=== PATIENT | female | born 1995 | race Caucasian/White ===

== ENCOUNTER 2017-05-13 17:06 | Outpatient (CLI) | payer OTHER ==
[~2017-05-13] VITALS: Ht 170.2 cm; Wt 69.6 kg
[~2017-05-13 17:06] MED LIST: PRENAT PO
[2017-05-13 17:22] VITALS: BP 136/80; PULSE 96; RESP 18; Ht 170.2 cm; Wt 69.6 kg
--- NOTE | 2017-05-13 17:56 | RADRPT ---
PROCEDURE: US OB. CLINICAL INDICATION: labor at 33 weeks gestational age. TECHNIQUE: Multiple sonographic images of the uterus were obtained. The images were revi ewed on a PACS workstation. COMPARISON: No prior studies are available for comparison. FINDINGS: There is a single live intrauterine gestation. heart rate is 159 beats per minute. Measurements were made in order to determine age. The results are as follows: BPD = 8.31 cm. HC = 29.80 cm. AC = 31.32 cm. FL = 6.74 cm. Estimated weight is 2484 +/- 373 grams. LMP growth percentile is 82 %. Menstrual age by ultrasound dates is 34 weeks 1 day. The estimated date of delivery is 06/23/2017. Position is cephalic and placenta is anterior grade 1. There is no evidence for an abruption or plac enta previa. IMPRESSION: 1. Single live intrauterine gestation of 34 weeks 1 day menstrual age by ultrasound dates. 2. The estimated date of delivery is 06/23/2017. RPTAT: QQ .Ozzie Orellnaa MD, Date Time Electronically viewed and signed by .Ozzie Orellana MD, on 05/13/2017 17:55 .R/
[2017-05-13 18:00] LABS: ADD UMIC YES; UR AMORPHOUS CRYSTAL MODERATE /HPF (NONE SEEN); UR ASCORBIC ACID NEGATIVE (NEGATIVE); UR BILIRUBIN (Dip) NEGATIVE (NEGATIVE); UR BLOOD (Dip) NEGATIVE (NEGATIVE); UR CLARITY CLOUDY (CLEAR); UR COLOR RED (YELLOW); UR GLUCOSE (Dip) NEGATIVE (NEGATIVE); UR KETONES (Dip) NEGATIVE (NEGATIVE); UR LEUKOCYTE ESTERASE (Dip) 1+ Leu/ul (NEGATIVE); UR NITRITE (Dip) NEGATIVE (NEGATIVE); UR RBC 1 /HPF (0-5); UR SPECIFIC GRAVITY (Dip) 1.005 (1.003-1.030); UR SQUAMOUS EPITHELIAL CELL MODERATE /HPF (FEW); UR TOTAL PROTEIN (Dip) NEGATIVE (NEGATIVE); UR UROBILINOGEN (Dip) NEGATIVE (NEGATIVE)
--- NOTE | 2017-05-13 18:10 | RADRPT ---
PROCEDURE: US OB biophysical profile. CLINICAL INDICATION: evaluation, labor TECHNIQUE: Multiple sonographic images of the pelvis were obtained. The images were reviewed on a PACS workstation. COMPARISON: No prior studies are available for comparison. FINDINGS: The cervix is closed and measures 3.3 cm in length. There is a single viable intrauterine gestation. Cardiac activity is present with 134 beats per min [place]. There is a vertex presentation. The placenta is anterior. There is no evidence of placental abruption. There is a normal amount of amniotic fluid with an STANLEY = 12.8 cm. Biophysical profile: movement 2/2 tone 2/2. breathing 2/2 STANLEY 2/2 Total 03/10 RPTAT: AA . IMPRESSION: Normal biophysical profile. Physician Jennifer Date Time Electronically viewed and signed by Physician Jennifer on 05/13/2017 18:10 /
--- NOTE | 2017-05-13 19:41 | TRIAGE ---
OB Triage Datetime Report Generated by CPN: 05/13/2017 19:40 Datetime: 05/13/2017 19:35 Stage of : OB Triage Datetime: 05/13/2017 19:33 Stage of : OB Triage Assessment Type: Triage Maternal Assessment Level of Consciousness: Fully Conscious Headache: Denies Blurred Vision: No Respiratory Effort: Unlabored; Regular Rhythm; Equal Expansion Nausea/Vomiting: Denies RUQ Epigastric Pain: Denies Facial Edema: None Fall Risk Assessment History of Falling: (0) No Secondary Diagnosis: (0) No Ambulatory Aid: (0) Bedrest/Nurse Assist IV Therapy: (0) No Gait: (0) Normal/Bedrest/Immobile Mental Status: (0) Oriented to Own Ability Fall Score: 0 Fall Risk Score Definition: No Risk: No action required Datetime: 05/13/2017 18:43 Assessment Type: Triage Maternal Assessment Level of Consciousness: Fully Conscious DTR's/Clonus: DTRs 2+; No Clonus Headache: Denies Blurred Vision: No Respiratory Effort: Unlabored; Regular Rhythm; Equal Expansion Breath Sounds, Left: Clear and Equal Breath Sounds, Right: Clear and Equal Nausea/Vomiting: Denies RUQ Epigastric Pain: Denies Facial Edema: None Fall Risk Assessment History of Falling: (0) No Secondary Diagnosis: (0) No Ambulatory Aid: (0) Bedrest/Nurse Assist IV Therapy: (0) No Gait: (0) Normal/Bedrest/Immobile Mental Status: (0) Oriented to Own Ability Fall Score: 0 Fall Risk Score Definition: No Risk: No action required Datetime: 05/13/2017 18:30 Labor Evaluation Frequency: OCCASIONAL Monitor Mode: External Duration (sec)2399: 40-90 Quality: Mild Pattern: Normal: <= 5 Contractions in 10 Minutes Resting Tone [place]: Relaxed Heart Rate FHR Baseline Rate: 135 Monitor Mode: External US Variability: Moderate 6-25 bpm Accelerations: 15X15 Decelerations: None Category: Category I Datetime: 05/13/2017 17:33 Labor Evaluation Frequency: OCCASIONAL Monitor Mode: External Duration (sec)2399: 50-90 Quality: Mild Pattern: Normal: <= 5 Contractions in 10 Minutes Resting Tone [place]: Relaxed Heart Rate FHR Baseline Rate: 145 Monitor Mode: External US Variability: Moderate 6-25 bpm Accelerations: 15X15 Decelerations: None Category: Category I Datetime: 05/13/2017 17:24 Time of Arrival: 05/13/2017 16:58 EGA: 33.2 Chief Complaint: R/O SROM SINCE SAT 05/09 Movement: Present Contractions: Occasional Patient Complaints: Cramping; Back Pain Time Provider Notified: 05/13/2017 18:30 Provider Notified: DR. CALZADA Initial Plan: SPECULUM EXAM, NST Datetime: 05/13/2017 17:00 Stage of : OB Triage Assessment Type: Triage Maternal Assessment Level of Consciousness: Fully Conscious DTR's/Clonus: DTRs 2+; No Clonus Headache: Denies Blurred Vision: No Respiratory Effort: Unlabored; Regular Rhythm; Equal Expansion Breath Sounds, Left: Clear and Equal Breath Sounds, Right: Clear and Equal Nausea/Vomiting: Denies RUQ Epigastric Pain: Denies Lower Extremities Edema: None Degree: None Upper Extremities Edema: None Degree: None Facial Edema: None Temperature Route: Axillary Fall Risk Assessment History of Falling: (0) No Secondary Diagnosis: (0) No Ambulatory Aid: (0) Bedrest/Nurse Assist IV Therapy: (0) No Gait: (0) Normal/Bedrest/Immobile Mental Status: (0) Oriented to Own Ability Fall Score: 0 Fall Risk Score Definition: No Risk: No action required
--- NOTE | 2017-05-14 04:02 | PN ---
Triage Information Date/Time May 13, 2017 May 13, 2017 Reason for visit: SROM Weeks of Gestation 33 weeks and 2 days /Para Diabetes: none Hypertention: none Additional information 22-year-old with IUP at 33 weeks and 2 days with complaint of leaking of fluid for the last 4 days. She denies any vaginal bleeding or decreased movement or uterine contractions. Denies any other complaints. Objective Vital Signs Date Time Temp Pulse Resp B/P Pulse Ox O2 Delivery O2 Flow Rate FiO2 05/13/17 17:22 98.3 96 18 136/80 98 Room Air Heart Rate: 120's Contractions: None Exam Abdomen: Soft, gravid, fundal height consistent with gestational age Sterile speculum examination: Negative nitrazine negative pooling ROM test negative NST: Category 1 Ultrasound cervical length 3.3 cm.Amniotic fluid index 12.8 Results/Medications Results 24 hrs Laboratory Tests Test 05/13/17 17:15 05/13/17 18:40 Urine Color RED Urine Clarity CLOUDY A Urine pH 7.0 Urine Specific [place] 1.005 Urine Ketones NEGATIVE Urine Nitrite NEGATIVE Urine Bilirubin NEGATIVE Urine Urobilinogen NEGATIVE Urine Leukocyte Esterase 1+ H Urine Microscopic RBC 1 Urine Microscopic WBC 4 Urine Squamous Epithelial Cells MODERATE Urine Amorphous Crystals MODERATE Urine Hemoglobin NEGATIVE Urine Glucose NEGATIVE Urine Total Protein NEGATIVE Membranes Rupture NEGATIVE Imaging Results PROCEDURE: US OB biophysical profile. CLINICAL INDICATION: evaluation, labor TECHNIQUE: Multiple sonographic images of the pelvis were obtained. The images were reviewed on a PACS workstation. COMPARISON: No prior studies are available for comparison. FINDINGS: The cervix is closed and measures 3.3 cm in length. There is a single viable intrauterine gestation. Cardiac activity is present with 134 beats per minute. There is a vertex presentation. The placenta is anterior. There is no evidence of placental abruption. There is a normal amount of amniotic fluid with an STANLEY = 12.8 cm. Biophysical profile: movement 2/2 tone 2/2. breathing 2/2 STANLEY 2/2 Total 03/10 RPTAT: AA . IMPRESSION: Normal biophysical profile. PROCEDURE: US OB. CLINICAL INDICATION: labor at 33 weeks gestational age. TECHNIQUE: Multiple sonographic images of the uterus were obtained. The images were reviewed on a PACS workstation. COMPARISON: No prior studies are available for comparison. FINDINGS: There is a single live intrauterine gestation. heart rate is 159 beats per minute. Measurements were made in order to determine age. The results are as follows: BPD = 8.31 cm. HC = 29.80 cm. AC = 31.32 cm. FL = 6.74 cm. Estimated weight is 2484 +/- 373 grams. LMP growth percentile is 82 %. Menstrual age by ultrasound dates is 34 weeks 1 day. The estimated date of delivery is 06/23/2017. Position is cephalic and placenta is anterior grade 1. There is no evidence for an abruption or placenta previa. IMPRESSION: 1. Single live intrauterine gestation of 34 weeks 1 day menstrual age by ultrasound dates. 2. The estimated date of delivery is 06/23/2017. Disposition: Discharge Assessment/Plan IUP at 33 weeks and 2 days Leaking of fluid Likely urine No evidence of rupture membrane Patient was reassured Strict labor precautions and kick count and follow-up within 24- 48 hours with her OB office discussed with the patient Patient verbalized understanding All questions were answered MICKY ROCHE MD May 14, 2017 04:02
== END 2017-05-13 19:44 | disposition home or self-care (01) ==
LOC: OBT 17:06 → L-D 17:07 → OBT 19:44
PROVIDERS: ATTEND Obstetrics & Gynecology
DX: O41.93X0 Disorder of amniotic fluid and membranes, unspecified, third trimester, not applicable or unspecified (principal); Z3A.33 33 weeks gestation of pregnancy
CPT/HCPCS: 76815; 76817; 76818; 81001; 84112; Z7500; G0463

== ENCOUNTER 2017-06-18 02:01 | Inpatient (IN) | payer OTHER ==
[~2017-06-18] VITALS: Ht 170.2 cm; Wt 71.2 kg
[2017-06-18 02:30] VITALS: BP 130/77; PULSE 114
[2017-06-18 02:36] VITALS: Ht 170.2 cm; Wt 71.2 kg
[2017-06-18] MEDS ORDERED: MISOPROSTOL 200 MCG TAB PR PRN (03:00)
[2017-06-18] MEDS ORDERED: LIDOCAINE 1% (MPF) 30 ML INJ INJ PRN (03:00)
[2017-06-18] MEDS ORDERED: BUTORPHANOL 2 MG INJ IV PRN ×2 (03:00)
[2017-06-18] MEDS ORDERED: OXYTOCIN 30 UNITS/LR 500 ML IV PRN (03:00)
[2017-06-18] MEDS ORDERED: IBUPROFEN 600 MG TAB PO PRN (03:00)
[2017-06-18] MEDS ORDERED: OXYTOCIN 30 UNITS/LR 500 ML IV SCH ×3 (03:00→10:30)
[2017-06-18] MEDS ORDERED: CARBOPROST 250 MCG INJ IM PRN (03:00)
[2017-06-18] MEDS ORDERED: LACTATED RINGER'S 1,000 ML IV PRN (03:00)
[2017-06-18] MEDS ORDERED: METHYLERGONOVINE 0.2 MG INJ IM PRN (03:00)
[2017-06-18] MEDS: LACTATED RINGER'S 1,000 ML IV SCH ×2 (03:06→09:36)
[2017-06-18 03:29] LABS: BASOPHILS % 0.3 % (0.0-2.0); EOSINOPHILS # 0.1 10^3/ul (0.0-0.5); EOSINOPHILS % 0.9 % (0.0-7.0); HEMATOCRIT 29.3 % (37.0-47.0); HEMOGLOBIN 9.7 g/dl (12.0-16.0); LYMPHOCYTES # 2.7 10^3/ul (0.8-2.9); LYMPHOCYTES % 21.2 % (15.0-51.0); MEAN CORPUSCULAR HGB CONC 33.1 g/dl (32.0-37.0); MEAN CORPUSCULAR VOLUME 81.6 fl (82.0-101.0); MEAN PLATELET VOLUME 9.6 fl (7.4-10.4); MONOCYTE # 0.9 10^3/ul (0.3-0.9); MONOCYTES % 7.2 % (0.0-11.0); NEUTROPHIL # 8.9 10^3/ul (1.6-7.5); NEUTROPHILS % 69.9 % (39.0-77.0); PLATELET COUNT 324 10^3/UL (140-415); RED BLOOD COUNT 3.59 10^6/ul (4.20-5.40); RED CELL DISTRIBUTION WIDTH 13.3 % (11.5-14.5); WHITE BLOOD COUNT 12.7 10^3/ul (4.8-10.8)
[2017-06-18 04:02] LABS: INR 1.05; PROTIME 13.7 Sec (12.2-14.2); PT RATIO 1.1
[2017-06-18 04:34] LABS: PARTIAL THROMBOPLASTIN TIME 25.2 Sec (25.0-35.0)
--- NOTE | 2017-06-18 07:35 | TRIAGE ---
OB Triage Datetime Report Generated by CPN: 06/18/2017 07:35 Datetime: 06/18/2017 05:40 Stage of : Labor Datetime: 06/18/2017 05:30 Stage of : Labor Labor Evaluation Frequency: IRREG Monitor Mode: External Duration (sec)2399: 40-100 Pattern: Normal: <= 5 Contractions in 10 Minutes Resting Tone [place]: Relaxed Heart Rate FHR Baseline Rate: 135 Monitor Mode: External US Variability: Moderate 6-25 bpm Accelerations: 15X15 Decelerations: Late Category: Category II Pain Assessment Pain Scale: 6 Pain Presence: Intermittent Pain Type: Contraction Pain Location: Abdomen; Back Pain Relief Measures: Comfort Measures Datetime: 06/18/2017 04:31 Membrane Status: Intact Datetime: 06/18/2017 04:30 Stage of : Labor Labor Evaluation Frequency: IRREG Monitor Mode: External Duration (sec)2399: 40-120 Pattern: Normal: <= 5 Contractions in 10 Minutes Resting Tone [place]: Relaxed Heart Rate FHR Baseline Rate: 135 Monitor Mode: External US Variability: Moderate 6-25 bpm Accelerations: 15X15 Decelerations: None Category: Category I Pain Assessment Pain Scale: 6 Pain Presence: Intermittent Pain Type: Contraction Pain Location: Abdomen; Back Pain Relief Measures: Comfort Measures Datetime: 06/18/2017 03:28 Assessment Type: Admission Assessment Vaginal Bleeding: None Maternal Assessment Level of Consciousness: Fully Conscious DTR's/Clonus: DTRs 2+; No Clonus Headache: Denies Blurred Vision: No Respiratory Effort: Unlabored; Regular Rhythm; Equal Expansion Breath Sounds, Left: Clear and Equal Breath Sounds, Right: Clear and Equal Nausea/Vomiting: Denies RUQ Epigastric Pain: Denies Lower Extremities Edema: None Degree: None Upper Extremities Edema: None Degree: None Facial Edema: None Fall Risk Assessment History of Falling: (0) No Secondary Diagnosis: (0) No Ambulatory Aid: (0) Bedrest/Nurse Assist IV Therapy: (20) Yes Gait: (0) Normal/Bedrest/Immobile Mental Status: (0) Oriented to Own Ability Fall Score: 20 Fall Risk Score Definition: No Risk: No action required Contraction Comments: unable to determine Heart Rate FHR Baseline Rate: 135 Variability: Moderate 6-25 bpm Accelerations: 15X15 Decelerations: None Category: Category I Pain Assessment Pain Scale: 7 Pain Presence: Intermittent Pain Type: Contraction Pain Location: Abdomen; Back Pain Goal: 2 Datetime: 06/18/2017 03:26 Time of Arrival: 06/18/2017 03:10 EGA: 38.3 Arrived By: Wheelchair Datetime: 06/18/2017 03:13 Stage of : Labor Datetime: 06/18/2017 03:05 Labor Evaluation Frequency: IRREGULAR Monitor Mode: External Duration (sec)2399: 50-90 Quality: Mild Pattern: Normal: <= 5 Contractions in 10 Minutes Resting Tone [place]: Relaxed Heart Rate FHR Baseline Rate: 130 Monitor Mode: External US FHR Baseline Changes: No Baseline Change Variability: Moderate 6-25 bpm Accelerations: 15X15 Decelerations: None Category: Category I Datetime: 06/18/2017 02:35 Stage of : OB Triage Datetime: 06/18/2017 02:30 Assessment Type: Triage Maternal Assessment Level of Consciousness: Fully Conscious DTR's/Clonus: DTRs 2+; No Clonus Headache: Denies Blurred Vision: No Respiratory Effort: Unlabored; Regular Rhythm; Equal Expansion Breath Sounds, Left: Clear and Equal Breath Sounds, Right: Clear and Equal Nausea/Vomiting: Denies RUQ Epigastric Pain: Denies Lower Extremities Edema: None Degree: None Upper Extremities Edema: None Degree: None Facial Edema: None Fall Risk Assessment History of Falling: (0) No Secondary Diagnosis: (0) No Ambulatory Aid: (0) Bedrest/Nurse Assist IV Therapy: (0) No Gait: (0) Normal/Bedrest/Immobile Mental Status: (0) Oriented to Own Ability Fall Score: 0 Fall Risk Score Definition: No Risk: No action required Vaginal Exam Dilatation (cms): 4.0 Effacement (%): 60 Station: -3 Exam By: Nitin WEISS Vaginal Bleeding: Normal Show Cervix, Consistency: Moderate Presentation 'A': Cephalic Datetime: 06/18/2017 02:00 Time of Arrival: 06/18/2017 02:00 EGA: 38.3 Arrived By: Ambulatory Arrived From: Home Chief Complaint: LEAKING, UC'S Movement: Present Contractions: Irregular Rupture of Membranes: Unsure Vaginal Bleeding: Normal Show Vaginal Discharge: Denies Recent Sexual Intercouse: Denies Abdominal Trauma: Not Applicable Patient Complaints: Contractions Time Provider Notified: 06/18/2017 02:35 Provider Notified: MELCHOR Initial Plan: VS, EFM, SVE, ROM PLUS Datetime: 05/13/2017 19:33 Fall Score: 0 Fall Risk Score Definition: No Risk: No action required Datetime: 05/13/2017 19:20 Labor Evaluation Frequency: NONE Monitor Mode: External Resting Tone [place]: Relaxed Heart Rate FHR Baseline Rate: 140 Monitor Mode: External US FHR Baseline Changes: No Baseline Change Variability: Moderate 6-25 bpm Decelerations: None Category: Category I Datetime: 05/13/2017 18:43 Fall Score: 0 Fall Risk Score Definition: No Risk: No action required Datetime: 05/13/2017 17:24 EGA: 33.2 Datetime: 05/13/2017 17:00 Fall Score: 0 Fall Risk Score Definition: No Risk: No action required
--- NOTE | 2017-06-18 12:54 | LDN ---
Date/Time of Note Date/Time of Note DATE: 06/18/17 TIME: 12:51 Delivery Summary Normal spontaneous vaginal delivery of a baby girl from OA position shoulders delivered without any difficulty rest of the baby's body followed cord clamped after stopped pulsation placenta spontaneous expulsion inspected complete peritoneal vaginal inspection no laceration estimated blood loss 200 cc Weeks of Gestation 38 weeks 3 days Placenta Delivered: Spontaneously Meconium: none Episiotomy: No Laceration repair: None Anesthesia type: None Sponge & Needle done & correct: Yes All needle counts correct: Yes Any foreign bodies felt in the: No Problems: Delivery Information Sex Infant Sex: female Apgars 1 Minute: 9 5 Minute: 9 Suctioning Nose & mouth suctioned at luís: Yes Delee suction performed: No Umbilical Cord Umbilical cord with: 3 Vessels Cord presentations: nuchal cord Cord Blood was obtained: Yes FRAN CALZADA MD Jun 18, 2017 12:54
--- NOTE | 2017-06-18 12:58 | HP ---
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 Rubella: immune RPR/VDRL: Negative GBS Status: Negative HBsAG: Negative OB Admission Exam Vital Signs Vital Signs Vital Signs Date Time Temp Pulse Resp B/P Pulse Ox O2 Delivery O2 Flow Rate FiO2 06/18/17 02:30 97.9 114 130/77 Room Air Physical Exam HEENT: WNL Heart: Rhythm Normal Lungs: Clear, Equal Abdomen: WNL Extremities: Normal Reflexes: Normal Cervical Dilatation: 4cm Effacement: 75% Station: -3 Membranes: Intact Heart Rate: 130's Accelerations: Accelerations Present Decelerations: No Decelerations Varibility: Moderate Contractions on Admission: < 5 Minutes Apart Intensity: Moderate Last 72 hours Lab Results CBC & BMP 06/18/17 02:55 OB Assessment/Plan Reason for admission: active labor Other plan: 22 years old EDC June 29, 2017 to [facility] in active labor transferred from triage to labor and delivery room anticipating vaginal delivery FRAN CALZADA MD Jun 18, 2017 12:58
[2017-06-18 15:00] VITALS: BP 127/79; PULSE 82; RESP 18
[2017-06-18] MEDS ORDERED: ONDANSETRON 4 MG INJ IV PRN (15:30)
[2017-06-18] MEDS ORDERED: ACETAMINOPHEN 325 MG TAB PO PRN (15:30)
[2017-06-18] MEDS ORDERED: DIBUCAINE 1% 30 GM OINT PR PRN (15:30)
[2017-06-18] MEDS ORDERED: BENZOCAINE 20% 56 ML SPRAY TOP PRN (15:30)
[2017-06-18] MEDS ORDERED: OXYCODONE/ASPIRIN (4.88/325) TAB PO PRN ×2 (15:30)
[2017-06-18] MEDS ORDERED: WITCH HAZEL/GLYCERIN PAD PR PRN (15:30)
[2017-06-18] MEDS ORDERED: HYDROCODONE/APAP (5/325) TAB PO PRN ×2 (15:30)
[2017-06-18] MEDS ORDERED: LANOLIN 7 GM TUBE TOP PRN (15:30)
[2017-06-18] MEDS: OXYTOCIN 30 UNITS/LR 500 ML IV SCH ×2 (17:11→21:24)
[2017-06-18 19:50] VITALS: BP 119/66; PULSE 96; RESP 18
[2017-06-18] MEDS: IBUPROFEN 600 MG TAB PO SCH (23:35)
[2017-06-19] MEDS: IBUPROFEN 600 MG TAB PO SCH ×5 (05:50→23:56)
[2017-06-19 07:50] VITALS: BP 107/61; PULSE 77; RESP 17
[2017-06-19 08:42] VITALS: BP 107/61; PULSE 77; RESP 14
[2017-06-19 09:08] LABS: BASOPHIL # 0.1 10^3/ul (0.0-0.1); BASOPHILS % 0.6 % (0.0-2.0); EOSINOPHILS # 0.2 10^3/ul (0.0-0.5); EOSINOPHILS % 1.8 % (0.0-7.0); HEMATOCRIT 31.7 % (37.0-47.0); HEMOGLOBIN 10.3 g/dl (12.0-16.0); LYMPHOCYTES # 3.4 10^3/ul (0.8-2.9); LYMPHOCYTES % 32.2 % (15.0-51.0); MEAN CORPUSCULAR HGB CONC 32.5 g/dl (32.0-37.0); MEAN PLATELET VOLUME 9.7 fl (7.4-10.4); MONOCYTES % 9.4 % (0.0-11.0); NEUTROPHIL # 5.9 10^3/ul (1.6-7.5); NEUTROPHILS % 55.4 % (39.0-77.0); PLATELET COUNT 296 10^3/UL (140-415); RED BLOOD COUNT 3.82 10^6/ul (4.20-5.40); RED CELL DISTRIBUTION WIDTH 13.4 % (11.5-14.5); WHITE BLOOD COUNT 10.6 10^3/ul (4.8-10.8)
--- NOTE | 2017-06-19 09:38 | QN ---
Documentation Comment day 1 Afebrile Vital signs are stable Abdomen soft Uterus firm Lochia normal Extremities normal FRAN CALZADA MD Jun 19, 2017 09:38
[2017-06-19 15:20] VITALS: BP 113/72; PULSE 88; RESP 18
[2017-06-19 19:40] VITALS: BP 131/74; PULSE 73; RESP 18
[2017-06-19] MEDS: SENNA/DOCUSATE NA (8.6MG/50MG) TAB PO SCH (21:00)
[2017-06-20 05:03] VITALS: BP 102/63; PULSE 73; RESP 18
[2017-06-20] MEDS: IBUPROFEN 600 MG TAB PO SCH ×2 (05:56→12:00)
[2017-06-20 08:00] VITALS: BP 123/85; PULSE 80; RESP 17
[2017-06-20] MEDS: SENNA/DOCUSATE NA (8.6MG/50MG) TAB PO SCH (09:00)
[2017-06-20] MEDS ORDERED: MEASLES,MUMPS,RUBELLA VACCINE INJ SC* ONE (09:00)
--- NOTE | 2017-06-20 10:20 | DS ---
Date/Time of Note Date/Time of Note DATE: 06/20/17 TIME: 10:16 Obstetrical Discharge Record Final Diagnosis Final Diagnosis: Term delivered Vaginal Delivery Obstetrical Delivery: Spontaneous Complications Augmentation: Yes Gestational Age at Rupture day 2 Doing Well Afebrile Ambulatory Chest Clear Breasts are soft , Nipples are intact Abdomen is soft Fundus is firm Moderate amount of lochia Incision is clean ,No evidence of infection No calf tenderness No ankle edema Current Medications Medications (Trade) Dose Ordered Sig/Keena Route PRN Reason Start Time Stop Time Status Last Admin Dose Admin Lactated Ringer's (Lr) 1,000 ml @ 125 mls/hr Q8H IV 06/18/17 02:37 06/18/17 15:11 DC 06/18/17 09:36 Butorphanol Tartrate (Stadol) 1 mg Q2H PRN IV PAIN 06/18/17 03:00 06/18/17 15:11 DC Butorphanol Tartrate (Stadol) 2 mg Q2H PRN IV PAIN 06/18/17 03:00 06/18/17 15:11 DC 06/18/17 12:00 Lidocaine 30 ml 30 ml ONCE PRN INJ EPISIOTOMY/TEARING 06/18/17 03:00 06/18/17 15:11 DC Oxytocin/Lactated Ringer's 500 ml @ 125 mls/hr ONCE -MAY REPEAT X1 IV 06/18/17 03:00 06/18/17 15:11 DC 06/18/17 12:58 Oxytocin/Lactated Ringer's 500 ml @ 125 mls/hr ONCE IV 06/18/17 03:00 06/18/17 15:11 DC Ibuprofen 600 mg 600 mg ONCE PRN PO Mild Pain (Pain Score 1-3) 06/18/17 03:00 06/18/17 15:11 DC Lactated Ringer's 1,000 ml @ 2,000 mls/hr Q30M PRN IV PRE-EPIDURAL BOLUS 06/18/17 03:00 06/18/17 15:11 DC Oxytocin/Lactated Ringer's 500 ml @ 0 mls/hr ONCE PRN IV For Hemorrhage Management 06/18/17 03:00 06/18/17 15:11 DC Methylergonovine Maleate (Methergine) 0.2 mg ONCE PRN IM VAGINAL BLEEDING 06/18/17 03:00 06/18/17 15:11 DC Carboprost Tromethamine (Hemabate) 250 mcg ONCE PRN IM VAGINAL BLEEDING 06/18/17 03:00 06/18/17 15:11 DC Misoprostol 1000 mcg 1,000 mcg ONCE PRN UT VAGINAL BLEEDING 06/18/17 03:00 06/18/17 15:11 DC Oxytocin/Lactated Ringer's 500 ml @ 0 mls/hr TITRATE IV 06/18/17 10:30 06/18/17 15:11 DC 06/18/17 10:51 Oxytocin/Lactated Ringer's 500 ml @ 125 mls/hr Q4H IV 06/18/17 15:06 06/18/17 23:05 DC 06/18/17 21:24 Ibuprofen (Motrin) 600 mg Q6 PO 06/18/17 18:00 06/19/17 12:19 Acetaminophen (Tylenol Tab) 650 mg Q4H PRN PO PAIN LEVEL 1-5 06/18/17 15:30 Acetaminophen/ Hydrocodone Bitart ([place] (5/325)) 1 tab Q4H PRN PO PAIN LEVEL 1-5 06/18/17 15:30 Acetaminophen/ Hydrocodone Bitart ([place] (5/325)) 2 tab Q4H PRN PO PAIN LEVEL 6-10 06/18/17 15:30 Oxycodone/Aspirin (Percodan) 1 tab Q3H PRN PO PAIN LEVEL 1-5 06/18/17 15:30 Oxycodone/Aspirin (Percodan) 2 tab Q3H PRN PO PAIN LEVEL 6-10 06/18/17 15:30 Ondansetron HCl (Zofran Inj) 4 mg Q6H PRN IV NAUSEA AND/OR VOMITING 06/18/17 15:30 Senna/Docusate Sodium (Senokot-S) 1 tab BID PO 06/19/17 21:00 Witch Anjali/ Glycerin (Tucks Pads) 1 pad BEDSIDE MEDICATION PRN UT HEMORRHOID/EPISIOTMY PAIN 06/18/17 15:30 Benzocaine (Dermoplast [place]) 1 spray BEDSIDE MEDICATION PRN TOP HEMORRHOID/EPISIOTMY PAIN 06/18/17 15:30 Dibucaine (Nupercainal) 1 applic BEDSIDE MEDICATION PRN UT HEMORRHOID/EPISIOTMY PAIN 06/18/17 15:30 Lanolin (Qmr-O-Srmhiw) 1 applic BEDSIDE MEDICATION PRN TOP BEDSIDE FOR KELLIE TO NIPPLES 06/18/17 15:30 06/19/17 08:37 Measles/Mumps/ Rubella Vaccine Live (Mmr Ii Vaccine) 0.5 ml ONCE ONCE SC* 06/20/17 09:00 06/20/17 09:01 DC New born is doing well, Breast feeding Condition on Discharge Physical Assessment Voiding: Yes Bowel Movement: Yes Breast: Soft, non-tender Fundus: Firm Episiotomy: Healing well Calf Tenderness: No Patient Condition: Good JUANA SKELTON MD Jun 20, 2017 10:20
== END 2017-06-20 15:10 | disposition home or self-care (01) | DRG 775 ==
LOC: OBT 02:01 → L-D 02:05 → OBT 02:45 → L-D 02:45 → PP1 14:45
PROVIDERS: ADMIT Obstetrics & Gynecology; ATTEND Obstetrics & Gynecology
PROC: 10E0XZZ Delivery of Products of Conception, External Approach (ICD-10-PCS; principal; 2017-06-18)
DX: O80 Encounter for full-term uncomplicated delivery (principal); Z37.0 Single live birth; Z3A.38 38 weeks gestation of pregnancy
CPT/HCPCS: 36415; 84112; 85025; 85610; 85730; 86592; 86900; 86901; 87340; G0463; J0595; J2590; J7120